=== PATIENT | female | born 1950 | race Two or more races ===

== ENCOUNTER 2022-03-16 08:07 | Outpatient (CLI) | payer OTHER | END 2022-03-16 08:25 | disposition home or self-care (01) | LOC: LAB 08:07 | PROVIDERS: ATTEND Internal Medicine Hematology & Oncology | DX: C73 Malignant neoplasm of thyroid gland (principal); D50.8 Other iron deficiency anemias; D51.3 Other dietary vitamin B12 deficiency anemia; D53.8 Other specified nutritional anemias; D51.1 Vitamin B12 deficiency anemia due to selective vitamin B12 malabsorption with proteinuria; I10 Essential (primary) hypertension; E11.9 Type 2 diabetes mellitus without complications; M06.9 Rheumatoid arthritis, unspecified; L41.4 Large plaque parapsoriasis ==

== ENCOUNTER 2022-12-18 07:35 | Outpatient (CLI) | payer OTHER | END 2022-12-18 07:39 | disposition home or self-care (01) | LOC: SONOGRAMA 07:35 | PROVIDERS: ATTEND Internal Medicine | DX: C73 Malignant neoplasm of thyroid gland (principal); R22.1 Localized swelling, mass and lump, neck; E04.2 Nontoxic multinodular goiter ==